=== PATIENT | male | born 1975 | race Caucasian/White ===

== ENCOUNTER 2016-06-15 06:30 | Day surgery (SDC) | payer OTHER ==
[~2016-06-15] VITALS: Ht 177.8 cm; Wt 105.2 kg
[2016-06-15] MEDS ORDERED: LORA10TA19 PO (07:25)
[2016-06-15] MEDS ORDERED: OMEP20TC10 PO (07:25)
[2016-06-15] MEDS ORDERED: LIDOCAINE/EPI MPF 1%1:200000 30 ML VIAL INJ ONE (08:12)
[2016-06-15] MEDS ORDERED: NEOMYCIN/POLYMYXIN/BACITRACIN OIN 15 GM TUBE TP ONE ×2 (08:12→09:28)
[2016-06-15] MEDS ORDERED: PHENYLEPHRINE 1% 15 ML BTL NS ONE (08:12)
[2016-06-15] MEDS ORDERED: ceFAZolin 1,000 MG VIAL ONE (08:32)
[2016-06-15] MEDS ORDERED: MIDAZOLAM 2 MG/2 ML VIAL ONE (08:33)
[2016-06-15] MEDS ORDERED: MEPERIDINE 50 MG/ML SYR ONE (08:34)
[2016-06-15] MEDS ORDERED: fentaNYL 0.05 MG/ML VIAL ONE (08:34)
[2016-06-15] MEDS ORDERED: hydrALAZINE 20 MG/ML VIAL ONE (08:35)
[2016-06-15] MEDS ORDERED: PROPOFOL 200 MG/20 ML VIAL IV ONE (08:35)
[2016-06-15] MEDS ORDERED: SEVOFLURANE 250 ML BTL INH ONE (08:35)
[2016-06-15] MEDS ORDERED: DEXAMETHASONE 4 MG/ML VIAL ONE (08:35)
[2016-06-15] MEDS ORDERED: ONDANSETRON 4 MG/2 ML VIAL ONE (08:35)
[2016-06-15] MEDS ORDERED: SUCCINYLCHOLINE CHLORIDE 200 MG/10 ML VIAL IVP ONE (08:35)
[2016-06-15] MEDS ORDERED: ACETAMIN/CODEINE 120/12MG-5ML 5 ML UDC PO PRN (09:35)
[2016-06-15] MEDS ORDERED: MEPERIDINE 25 MG/ML SYR IVP PRN (09:35)
[2016-06-15] MEDS ORDERED: guaiFENesin DM 200/20 MG-10 ML 10 ML UDC PO PRN (09:35)
[2016-06-15] MEDS ORDERED: PROMETHAZINE 25 MG/ML VIAL IVP PRN (09:35)
[2016-06-15] MEDS ORDERED: LACTATED RINGERS 1,000 ML IV SCH (09:44)
[2016-06-15] MEDS ORDERED: HYDROmorphone 1 MG/ML AMP IVP PRN (09:45)
[2016-06-15] MEDS ORDERED: ONDANSETRON 4 MG/2 ML VIAL IVP PRN (09:45)
[2016-06-15] MEDS ORDERED: diphenhydrAMINE 50 MG/ML VIAL IVP PRN (09:45)
[2016-06-15] MEDS: MEPERIDINE 25 MG/ML SYR IVP PRN ×2 (09:50→10:00)
[2016-06-15] MEDS ORDERED: MEPERIDINE 25 MG/ML SYR ONE ×2 (09:57→10:08)
== END 2016-06-15 12:40 | disposition home or self-care (01) ==
LOC: MDS 06:30 → MMU 06:34 → MDS 12:40
PROVIDERS: ATTEND Otolaryngology
DX: J34.2 Deviated nasal septum (principal); J34.3 Hypertrophy of nasal turbinates; Z72.89 Other problems related to lifestyle; Z83.3 Family history of diabetes mellitus; K21.9 Gastro-esophageal reflux disease without esophagitis; J45.909 Unspecified asthma, uncomplicated
CPT/HCPCS: 30140; 30520; 30999; J0330; J0360; J0690; J1100; J2001; J2175; J2250; J2405; J2704; J3010; J7120